=== PATIENT | female | born 1995 | race Caucasian/White ===

== ENCOUNTER 2020-11-16 14:52 | Emergency (ER) | payer MEDICAID ==
[~2020-11-16] VITALS: Ht 160 cm; Wt 79.5 kg
[2020-11-16 15:40] LABS: BASOPHILS % (AUTO) 0.2 % (0-1); EOSINOPHILS # (AUTO) 0.2 X10'3 (0-0.9); EOSINOPHILS % (AUTO) 2.1 % (0-6); HEMATOCRIT 38.2 % (35.0-45.0); HEMOGLOBIN 12.9 g/dl (12.0-16.0); LYMPHOCYTES # (AUTO) 2.8 X10'3 (1.1-4.8); LYMPHOCYTES % (AUTO) 28.4 % (21-51); MEAN CORPUSCULAR HEMOGLOBIN 30.4 PG (27.0-31.0); MEAN CORPUSCULAR HGB CONC 33.8 g/dL (33.0-36.5); MEAN PLATELET VOLUME 10.5 FL (7.4-10.4); MONOCYTES # (AUTO) 0.9 X10'3 (0-0.9); MONOCYTES % (AUTO) 9.2 % (2-12); NEUTROPHILS # (AUTO) 5.8 X10'3 (1.8-7.7); NEUTROPHILS % (AUTO) 60.1 % (42-75); PLATELET COUNT 226 X10'3 (140-440); RED BLOOD COUNT 4.25 X10'6 (4.20-5.60); RED CELL DISTRIBUTION WIDTH 13.2 % (11.5-14.5); WHITE BLOOD COUNT 9.7 X10'3 (4.5-11.0)
[2020-11-16 15:59] LABS: ALANINE AMINOTRANSFERASE 29 U/L (12-78); ALBUMIN 3.9 G/DL (3.4-5.0); ALKALINE PHOSPHATASE 74 IU/L (46-116); ANION GAP 9 (8-16); ASPARTATE AMINO TRANSFERASE 23 U/L (10-37); BILIRUBIN,TOTAL 0.4 MG/DL (0.1-1.0); BLOOD UREA NITROGEN 14 MG/DL (7-18); CALCIUM 9.2 MG/DL (8.5-10.1); CHLORIDE 104 MMOL/L (99-107); GLUCOSE 80 MG/DL (70-104); POTASSIUM 3.4 MMOL/L (3.5-5.1); SODIUM 142 MMOL/L (135-145); TOTAL CARBON DIOXIDE 28.6 MMOL/L (24-32); TOTAL PROTEIN 7.8 G/DL (6.4-8.2); VALPROATE 58 UG/ML (50-100); eGFR > 90 ML/MIN
[2020-11-16] MEDS ORDERED: ondansetron 4mg rapidly disintigrating tab PO ONE (16:30)
[2020-11-16 17:49] LABS: CLARITY,URINE CLEAR (Clear); COLOR,URINE STRAW (Yellow); GLUCOSE, URINE NEGATIVE (Neg); KETONES,URINE NEGATIVE (Neg); LEUKOCYTE ESTERASE ,URINE NEGATIVE (Neg); NITRITES, URINE NEGATIVE (Neg); OCCULT BLOOD,URINE MODERATE (Neg); PROTEIN,URINE NEGATIVE (Neg); UROBILINOGEN,URINE 0.2 E.U/dL (0.2-1.0)
[2020-11-16 17:50] LABS: URINE HCG NEGATIVE (NEG)
[2020-11-16 17:52] LABS: UA COLLECTION TYPE CLN CATCH MIDSTREAM
[2020-11-16 18:11] LABS: SQUAMOUS EPITHELIAL CELL,UR FEW /LPF (FEW); WBC,URINE 0-4 /HPF (0-4)
[2020-11-16 18:15] LABS: BACTERIA,URINE FEW /HPF (Neg); RBC,URINE 20-50 /HPF (0-2)
[2020-11-16 18:42] VITALS: BP 122/82
== END 2020-11-16 18:45 | disposition home or self-care (01) ==
LOC: ER 14:52
DX: Z91.018 Allergy to other foods (principal); R11.0 Nausea
CPT/HCPCS: 36415; 80053; 80164; 81001; 81025; 85025; 93005; 99284